=== PATIENT | female | born 1950 | race Caucasian/White ===

== ENCOUNTER 2022-03-19 14:31 | Emergency (ER) | payer MEDICARE, BC, SELFPAY ==
[2022-03-19] VITALS (62 sets, daily range): BP systolic 176–239; BP diastolic 75–114; PULSE 63–92; RESP 10–23; TEMP 36.6; O2SAT 91–100; BMI 22.6
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
--- NOTE | 2022-03-19 14:50 | ED.TRAUMA ---
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 any major decisions while taking it. This medication will make you constipated please take a stool softener once to twice daily until stools are soft and regular. Narcotics can make you nauseated you may take Zofran 1 tablet 20 minutes prior to narcotic pain medication every 6 hours as needed. Prescription sent to [facility] in [place]. Please return for rapidly worsening pain, loss of bowel or bladder control, new weakness, numbness or loss of sensation in your lower extremities inability to lift or move your legs, passing out, new chest pain shortness of breath or other new or concerning symptoms. Prescriptions: New ondansetron 4 mg tablet,disintegrating 4 mg PO Q6H PRN (Reason: nausea and vomiting) Qty: 20 0RF oxycodone 5 mg tablet 5 mg PO Q6H PRN (Reason: pain) Qty: 20 0RF ondansetron 4 mg tablet,disintegrating 4 mg PO QID PRN (Reason: nausea and vomiting) Qty: 20 0RF oxycodone 5 mg tablet 5 mg PO Q6H PRN (Reason: pain) Qty: 20 0RF Referrals: Lionel Valdez MD [Primary Care Provider] - Visit Report Forms: Patient Portal/API
[2022-03-19 14:59] LABS: Add Manual Diff / Slide Review NO; Basophils Absolute Auto 0 /uL (0-100); Basophils Percent Auto 0.4 % (0-2); Eosinophils Absolute Auto 100 /uL (0-450); Hematocrit 42.5 % (36-46); Lymphocytes Absolute Auto 2000 /uL (1100-4500); Lymphocytes Percent Auto 30.4 % (25-40); Mean Corpuscular HGB Conc 35.2 % (30-36); Mean Corpuscular Hemoglobin 34.8 PG (26-34); Monocytes Absolute Auto 600 /uL (0-900); Monocytes Percent Auto 8.7 % (3-14); Neutrophils Absolute Auto 3900 /uL (1500-7000); Neutrophils Percent Auto 59.5 % (50-75); Platelet Count 161 X10^3/uL (150-400); Red Cell Distribution Width 13.6 % (11.6-14.8); White Blood Cell Count 6.6 X10^3/uL (4.5-11.0)
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
[2022-03-19 15:03] LABS: Alanine Aminotransferase 23 IU/L (<35); Albumin 4.7 g/dL (3.5-5.0); Albumin Globulin Ratio 1.3 (1.0-2.8); Alkaline Phosphatase 92 U/L (38-126); Aspartate Aminotransferase 41 IU/L (14-36); BUN Creatinine Ratio 22.4 (6-22); Bilirubin Total 0.7 mg/dL (0.2-1.3); Blood Urea Nitrogen 15 mg/dL (7-17); Calcium 9.3 mg/dL (8.4-10.2); Carbon Dioxide 26 mmol/L (22-32); Chloride 97 mmol/L (98-107); Estimated Glomerular Filt Rate > 60 mL/min (>60); Ethanol (ETOH) < 10 mg/dL; Globulin 3.5 g/dL (1.7-4.1); Glucose 96 mg/dL (80-110); HEMOLYSIS < 15 (0-50); Lipase 103 U/L (23-300); Potassium 4.2 mmol/L (3.4-5.1); Sodium 132 mmol/L (137-145); Total Protein 8.2 g/dL (6.3-8.2)
[2022-03-19 15:10] LABS: INR 1.1 (0.9-1.3); Prothrombin Time 12.5 SECONDS (10.1-12.7)
[2022-03-19 15:12] LABS: PTT Partial Thromboplastin Tim 36 SECONDS (26.4-36.2)
--- NOTE | 2022-03-19 15:48 | PC.NURSE ---
C-collar removed per Dr Ayala. Pt using the bedpan
[2022-03-19] MEDS: ONDANSETRON 4 MG/2 ML INJ IV ×2 (16:48→17:58)
[2022-03-19] MEDS: MORPHINE 4 MG/ML INJ IV (16:48)
[2022-03-19] MEDS: TET,DIPH,PERTUSS(ACELL),VAC/PF 0.5 ML SYRINGE IM (16:48)
[2022-03-19 16:58] LABS: Bacteria Urine Occasional (0-1); Culture Indicated Urine Cult Not Indicated; RBC Urine 0-1/HPF (0-5/HPF); Squamous Epithelial Cell Urine 1-5 /HPF (0-5/HPF); Transitional Epi Cells Urine 1-5/HPF (0-5/HPF); WBC Urine 0-1/HPF (0-5/HPF)
[2022-03-19 18:37] LABS: COVID19 -Nasal RAPID Negative (Negative)
[2022-03-19] MEDS: KETOROLAC 30 MG/ML VIAL 15 MG IV (19:04)
[2022-03-19] MEDS: OXYCODONE IR 5 MG TABLET PO (19:04)
[2022-03-19] MEDS: METOCLOPRAMIDE 10 MG/2 ML INJ IV (19:20)
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
[2022-03-19] MEDS: ONDANSETRON 4 MG ODT PREPACK 1 BOTTLE MISC (20:39)
[2022-03-19] MEDS: OXYCODONE/APAP 5/325 PREPACK 1 BOTTLE MISC (20:39)
== END 2022-03-19 21:04 | disposition home or self-care (01) ==
PROVIDERS: Emergency Provider Emergency Medicine; PCP Family Medicine
DX: S22.081A Stable burst fracture of T11-T12 vertebra, initial encounter for closed fracture (principal); S09.90XA Unspecified injury of head, initial encounter; V89.2XXA Person injured in unspecified motor-vehicle accident, traffic, initial encounter; Z23 Encounter for immunization; Z20.822 Contact with and (suspected) exposure to COVID-19; I10 Essential (primary) hypertension
CPT/HCPCS: 36415; 70450; 71045; 71260; 72125; 72170; 74177; 80053; 80320; 81003; 81015; 82962; 83690; 85025; 85610; 85730; 86850; 86900; 86901; 87635; 90471; 93005; 93010; 96374; 96375; 96376; 99284; 99285; 99291; C9803; 90715; J1885; J2270; J2405; J2765

== ENCOUNTER 2022-04-05 12:20 | Emergency (ER) | payer MEDICARE, BC, SELFPAY ==
[2022-04-05] VITALS (24 sets, daily range): BP systolic 178–196; BP diastolic 79–91; PULSE 61–96; RESP 9–35; TEMP 36.3; O2SAT 89–100; BMI 20.9
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
--- NOTE | 2022-04-05 12:57 | ED.NAVMDI ---
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 tablet 5 mg PO Q6H PRN (Reason: pain) Qty: 20 0RF ondansetron 4 mg tablet,disintegrating 4 mg PO QID PRN (Reason: nausea and vomiting) Qty: 20 0RF oxycodone 5 mg tablet 5 mg PO Q6H PRN (Reason: pain) Qty: 20 0RF Referrals: Lionel Valdez MD [Primary Care Provider] - Visit Report Forms: Patient Portal/API
--- NOTE | 2022-04-05 13:20 | DI.CT.S_ITS ---
PROCEDURE: CT THORACIC SPINE WO CON INDICATIONS: T12 burst fx. TECHNIQUE: Noncontrast 3 mm thick sections acquired through the region of interest in the thoracic spine. Sagittal and coronal reformats were then constructed. For radiation dose reduction, the following was used: automated exposure control. COMPARISON: None. FINDINGS: Image quality: Excellent. T12 burst fracture with retropulsed fracture fragment extending 8 millimeters posteriorly into the spinal canal producing moderate spinal canal stenosis. No spinal canal stenosis otherwise. Remaining vertebral body heights maintained with no additional fracture demonstrated. Alignment is normal. IMPRESSION: Acute T12 burst fracture with fracture fragment retropulsion measuring 8 millimeters producing moderate spinal canal stenosis. Dictated by: Nikko Mcneal M.D. on 04/05/2022 at 14:27 Approved by: Nikko Mcneal M.D. on 04/05/2022 at 14:27
--- NOTE | 2022-04-05 13:20 | DI.CT.S_ITS ---
PROCEDURE: CT ABDOMEN PELVIS W CON INDICATIONS: diarrhea, recent T12 burst compression fx. TECHNIQUE: After the administration of intravenous contrast, axial sections acquired from the lung bases to the pubic symphysis. Coronal and sagittal reformats were performed. For radiation dose reduction, the following was used: automated exposure control, adjustment of mA and/or kV according to patient size. COMPARISON: [facility], CT, CT THORACIC SPINE WO CON, 04/05/2022, 13:58. FINDINGS: Image quality: Excellent. Lung bases: Included portions of the lung bases are clear. Heart: Normal heart size. Trace pericardial effusion. ABDOMEN: Liver: Unremarkable. Gallbladder: Normal. Biliary ducts: Nondilated. Pancreas: No peripancreatic inflammatory changes or pancreatic ductal dilatation. Spleen: Normal size and appearance. Adrenal Glands: No nodule or mass. Kidneys and Ureters: No hydroureteronephrosis or urinary tract calculus. Stomach and Bowel: No abnormally dilated or obviously thickened loop of bowel. No pericolonic or mesenteric inflammatory changes. There is a moderate to large volume of formed stool throughout the colon. Peritoneum: No abnormal intraperitoneal fluid. No free air. Ventral Wall: No hernias. Abdominal Nodes: No retroperitoneal or mesenteric adenopathy by size criteria. Vessels: Aorta and inferior vena cava are normal in size. PELVIS: Pelvic Organs: Urinary bladder, uterus, and ovaries normal. Pelvic Nodes: No enlarged lymph nodes. Miscellaneous: No hernias are seen. Bones: Remote T12 compression burst fracture. Retropulsed osseous fracture fragment. Degenerative changes in the spine. IMPRESSION: No acute finding in the abdomen or pelvis. Large volume of formed stool throughout the colon. Dictated by: Nikko Mcneal M.D. on 04/05/2022 at 14:16 Approved by: Nikko Mcneal M.D. on 04/05/2022 at 14:26
[2022-04-05 13:55] LABS: Add Manual Diff / Slide Review NO; Basophils Absolute Auto 0 /uL (0-100); Basophils Percent Auto 0.5 % (0-2); Eosinophils Absolute Auto 0 /uL (0-450); Eosinophils Percent Auto 0.4 % (2-4); Hematocrit 41.2 % (36-46); Hemoglobin 14.4 g/dL (12.0-16.0); Lymphocytes Absolute Auto 1500 /uL (1100-4500); Lymphocytes Percent Auto 21.3 % (25-40); Mean Corpuscular Hemoglobin 34.7 PG (26-34); Mean Corpuscular Volume 99.1 fL (80-100); Monocytes Absolute Auto 700 /uL (0-900); Monocytes Percent Auto 10.3 % (3-14); Neutrophils Absolute Auto 4800 /uL (1500-7000); Neutrophils Percent Auto 67.5 % (50-75); Platelet Count 295 X10^3/uL (150-400); Red Blood Cell Count 4.16 X10^6/uL (4.0-5.2); Red Cell Distribution Width 13.2 % (11.6-14.8); White Blood Cell Count 7.1 X10^3/uL (4.5-11.0)
[2022-04-05 14:00] LABS: COVID19 -Nasal RAPID Negative (Negative)
[2022-04-05 14:09] LABS: Alanine Aminotransferase 12 IU/L (<35); Albumin 4.2 g/dL (3.5-5.0); Albumin Globulin Ratio 1.2 (1.0-2.8); Alkaline Phosphatase 108 U/L (38-126); Aspartate Aminotransferase 24 IU/L (14-36); BUN Creatinine Ratio 20.9 (6-22); Bilirubin Total 0.6 mg/dL (0.2-1.3); Blood Urea Nitrogen 14 mg/dL (7-17); Carbon Dioxide 29 mmol/L (22-32); Chloride 100 mmol/L (98-107); Creatine Kinase 53 U/L (30-135); Estimated Glomerular Filt Rate > 60 mL/min (>60); Globulin 3.5 g/dL (1.7-4.1); Glucose 85 mg/dL (80-110); HEMOLYSIS < 15 (0-50); Lipase 101 U/L (23-300); Sodium 133 mmol/L (137-145); Total Protein 7.7 g/dL (6.3-8.2)
[2022-04-05 14:18] LABS: NT-proBNP (BNP-Adult 18+) 678 pg/mL (<125)
[2022-04-05 14:20] LABS: Troponin I 0.025 ng/mL (0.01-0.034)
[2022-04-05] MEDS: SODIUM CHLORIDE 0.9% 1,000 ML 150 ML IV (14:26)
[2022-04-05 16:14] LABS: Troponin I 0.039 ng/mL (0.01-0.034)
--- NOTE | 2022-04-05 18:00 | PC.NURSE ---
Juice provided for patient due to blood sugar 72
[2022-04-05] MEDS: NICOTINE 14 PATCH 14 MG TOP (18:12)
[2022-04-05 22:08] LABS: Troponin I 0.024 ng/mL (0.01-0.034)
== END 2022-04-05 23:24 | disposition home or self-care (01) ==
PROVIDERS: Emergency Medicine; Emergency Provider Emergency Medicine; PCP Family Medicine
DX: R19.7 Diarrhea, unspecified (principal); R00.2 Palpitations; S22.089D Unspecified fracture of T11-T12 vertebra, subsequent encounter for fracture with routine healing; Z20.822 Contact with and (suspected) exposure to COVID-19
CPT/HCPCS: 36415; 72128; 74177; 80053; 81003; 82550; 82962; 83690; 83880; 84484; 85025; 87635; 93005; 96360; 96361; 99284; C9803; Q9967